=== PATIENT | female | born 1990 | race Caucasian/White ===

== ENCOUNTER 2016-12-11 15:53 | Emergency (ER) | payer MEDICAID, OTHER ==
[~2016-12-11] VITALS: Ht 162.6 cm; Wt 96.0 kg
[2016-12-11] MEDS ORDERED: SODIUM CHLORIDE 0.9% 1,000 ML IV ONE (16:11)
[2016-12-11] MEDS ORDERED: ONDANSETRON 2MG/ML, 2ML ONE (16:15)
[2016-12-11] MEDS ORDERED: MORPHINE SULFATE 4 MG/ML, 1ML ONE (16:15)
[2016-12-11] MEDS ORDERED: ONDANSETRON 2MG/ML, 2ML IVPush ONE (16:30)
[2016-12-11] MEDS ORDERED: SODIUM CHLORIDE 0.9% 1,000ML IVBOLUS ONE (16:30)
[2016-12-11] MEDS ORDERED: MORPHINE SULFATE 4 MG/ML, 1ML IVPush PRN (16:30)
[2016-12-11] MEDS ORDERED: BIRTH CONTROL PO (16:32)
[2016-12-11] MEDS ORDERED: IBUPROFEN 200 MG TABLET ONE (16:58)
[2016-12-11] MEDS ORDERED: IBUPROFEN 200 MG TABLET PO ONE (17:00)
[2016-12-11 17:12] LABS: PATH.CAST-FLAG NOT PRESENT; SPERM-FLAG NOT PRESENT; SRC-FLAG NOT PRESENT; XTAL-FLAG NOT PRESENT; YLC-FLAG NOT PRESENT
[2016-12-11 17:20] LABS: HCG UR OBC PASS
[2016-12-11 17:42] VITALS: BP 124/79
== END 2016-12-11 17:44 | disposition home or self-care (01) ==
LOC: ED 16:41
DX: N39.3 Stress incontinence (female) (male) (principal); R10.31 Right lower quadrant pain; R10.32 Left lower quadrant pain
CPT/HCPCS: 81001; 81025; 99284